=== PATIENT | male | born 1955 | race Caucasian/White ===

== ENCOUNTER 2019-04-06 11:27 | Emergency (ER) | payer OTHER ==
[~2019-04-06] VITALS: Ht 182.9 cm; Wt 124.7 kg
[2019-04-06] MEDS ORDERED: FOSINOPRIL-HCT1 EACH PO (11:39)
[2019-04-06] MEDS ORDERED: TOPROL XL50 M1 PO (11:40)
[2019-04-06] MEDS ORDERED: SERTRALINE20 MG/1 ML PO (11:40)
[2019-04-06] MEDS ORDERED: BUPROPION XL450 MG PO (11:40)
[2019-04-06] MEDS ORDERED: ALPRAZOLAM ODT1 MG PO (11:41)
[2019-04-06] MEDS ORDERED: MICROZIDE12.5 MG PO (11:41)
== END 2019-04-06 16:24 | disposition home or self-care (01) ==
LOC: ER 11:27
DX: S61.422A Laceration with foreign body of left hand, initial encounter (principal); W26.0XXA Contact with knife, initial encounter; Y93.89 Activity, other specified; Y92.098 Other place in other non-institutional residence as the place of occurrence of the external cause; Y99.8 Other external cause status

== ENCOUNTER 2020-07-29 15:49 | Outpatient (CLI) | payer OTHER ==
[~2020-07-29 15:49] MED LIST: ALPRAZOLAM ODT1 MG PO; BUPROPION XL450 MG PO; FOSINOPRIL-HCT1 EACH PO; MICROZIDE12.5 MG PO; SERTRALINE20 MG/1 ML PO; TOPROL XL50 M1 PO
== END 2020-07-29 16:01 | disposition home or self-care (01) ==
LOC: RAD 15:49
PROVIDERS: ATTEND Family Medicine
DX: M25.571 Pain in right ankle and joints of right foot (principal); M25.572 Pain in left ankle and joints of left foot

== ENCOUNTER → 2022-09-02 | Outpatient (CLI) | payer OTHER | END | disposition home or self-care (01) | LOC: RAD 14:15 | PROVIDERS: ATTEND Physical Medicine & Rehabilitation | DX: M54.59 Other low back pain (principal) ==

== ENCOUNTER 2023-07-25 07:37 | Outpatient (CLI) | payer OTHER | END 2023-07-25 07:49 | disposition home or self-care (01) | LOC: RAD 07:37 → EDBD 07:37 → RAD 07:49 | PROVIDERS: ATTEND Internal Medicine Cardiovascular Disease | DX: I11.9 Hypertensive heart disease without heart failure (principal) ==